=== PATIENT | female | born 2000 | race Caucasian/White ===

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

== ENCOUNTER → 2018-12-11 | Outpatient (CLI) | payer OTHER | LOC: COL.CARD 08:30 | DX: R00.2 Palpitations (principal); R55 Syncope and collapse ==

== ENCOUNTER 2019-06-05 22:25 | Emergency (ER) | payer OTHER ==
[~2019-06-05] VITALS: Ht 172.7 cm; Wt 81.8 kg
[2019-06-05] MEDS ORDERED: ASPIRIN 81M81 MG/TA2 PO (22:41)
[2019-06-05] MEDS ORDERED: PULMICORT90 MCG/Act IH (22:41)
[2019-06-05] MEDS ORDERED: B-121000 MCG PO (22:42)
[2019-06-05] MEDS ORDERED: PROTONIX40 MG/Pack PO (22:42)
[2019-06-05] MEDS ORDERED: PROAIR HFA0.09 MG/AC IH (22:43)
[2019-06-05] MEDS ORDERED: PRENATAL TABLET PO (22:44)
[2019-06-05] MEDS ORDERED: FERROUS SU325 MG/TAB PO (22:44)
[2019-06-05 23:02] LABS: BASO % 0.2 % (0.0-2.0); EOS # 0.1 (0.0-0.7); EOS % 0.7 % (0-4.0); GRAN # 5.5 (1.4-6.5); GRAN % 61.7 % (42.2-75.2); HEMOGLOBIN 11.6 g/dl (12.0-15.0); LYMPH # 2.5 (1.2-3.4); LYMPH % 28.3 % (20.0-51.0); MEAN CELL VOLUME 90 fl (80.0-95.0); MEAN CORPUSCULAR HEMOGLOBIN 31 pg (26.0-32.0); MEAN CORPUSCULAR HGB CONC 35 g/dl (33.0-37.0); MEAN PLATELET VOLUME 11.4 fl (7.4-10.4); MONO # 0.8 (0.1-0.6); MONO % 8.8 % (1.7-9.3); PLATELET COUNT 261 K/mm3 (130-400); RED BLOOD COUNT 3.69 M/mm3 (4.10-5.30); REDCELL DISTRIBUTION WIDTH-CV 12.6 % (11.5-14.5)
[2019-06-05 23:03] LABS: HEMATOCRIT 33.3 % (35.0-45.0)
[2019-06-05 23:12] LABS: ALBUMIN 3.9 gm/dL (3.5-5.0); BILIRUBIN,TOTAL 0.2 mg/dL (0.0-1.0); CALCIUM 9.5 mg/dL (8.4-10.2); CREATININE, serum 0.43 (0.52-1.25); POTASSIUM 3.8 mmol/L (3.4-5.0); TOTAL PROTEIN 6.8 gm/dL (6.4-8.2)
[2019-06-05 23:29] LABS: PROLACTIN 133.1 ng/mL (3.0-18.6)
[2019-06-06 00:53] LABS: COLLECTION METHOD CLEAN CATCH
[2019-06-06 00:58] LABS: PH 7 (5-8); SQUAMOUS EPITHELIAL 0-2 /hpf; URINE APPEARANCE Clear; URINE BACTERIA Rare /hpf; URINE BILIRUBIN Negative (NEGATIVE); URINE BLOOD Negative (NEGATIVE); URINE COLOR Straw; URINE GLUCOSE Negative (NEGATIVE); URINE KETONE Negative (NEGATIVE); URINE LEUKOCYTE ESTERASE 1+ (NEGATIVE); URINE NITRATE Negative (NEGATIVE); URINE PROTEIN(semi-quant) Negative (NEGATIVE); URINE RBC 0-2 /hpf; URINE UROBILINOGEN Negative (NEGATIVE)
[2019-06-06] MEDS ORDERED: MACROBID 1100 MG/CAP PO (01:34)
[2019-06-06 01:50] VITALS: BP 101/67; PULSE 97; TEMP 98
== END 2019-06-06 01:50 | disposition home or self-care (01) ==
LOC: COL.ER 22:25
PROVIDERS: Emergency Medicine
DX: O26.892 Other specified pregnancy related conditions, second trimester (principal); O99.512 Diseases of the respiratory system complicating pregnancy, second trimester; J45.909 Unspecified asthma, uncomplicated; Z3A.19 19 weeks gestation of pregnancy; Z79.82 Long term (current) use of aspirin; Z79.51 Long term (current) use of inhaled steroids
CPT/HCPCS: J7030

== ENCOUNTER 2019-06-27 22:06 | Outpatient (CLI) | payer OTHER ==
[~2019-06-27] VITALS: Ht 167.6 cm; Wt 84.1 kg
[~2019-06-27 22:06] MED LIST changes: +ASPIRIN 81M81 MG/TA2 PO; +B-121000 MCG PO; +FERROUS SU325 MG/TAB PO; +MACROBID 1100 MG/CAP PO; +PRENATAL TABLET PO; +PROAIR HFA0.09 MG/AC IH; +PROTONIX40 MG/Pack PO; +PULMICORT90 MCG/Act IH
[2019-06-27 22:12] VITALS: BP 126/73; PULSE 97; TEMP 98.4
--- NOTE | 2019-06-27 22:30 | NUR ---
G1 at 23.5 weeks gestation to LDR5 with c/o vaginal bleeding and decreased movement. 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 Patient states she has seen Dr. Ivory for care but is unsure if he is her primary OB provider or where she will deliver her baby. Patient states the above medical history but denies any further complications. Patient states that she was in the shower when she felt a "trickle" of blood run down her legs. Since this she has had some "pink" tinged spotting when she wipes but no active bleeding. Patient changed into gown, wedged left in bed. EFMs explained and applied. FHR 150 bpm and reactive. No CTX per toco or patient reports. VSS. SVE closed/thick/high. Plan of care reviewed with patient.
== END 2019-06-27 23:30 | disposition home or self-care (01) ==
LOC: LDRO 22:06
DX: O46.92 Antepartum hemorrhage, unspecified, second trimester (principal); Z3A.23 23 weeks gestation of pregnancy

== ENCOUNTER 2019-10-04 21:39 | Emergency (ER) | payer OTHER ==
[~2019-10-04] VITALS: Ht 167.6 cm; Wt 95.3 kg
[~2019-10-04 21:39] MED LIST changes: +UNISOM25 MG; +UNISOM25 MG PO; +ZANTAC 150MG T150 MG PO
[2019-10-04 21:46] VITALS: TEMP 97.8
[2019-10-04] MEDS ORDERED: MAGNESIUM200 MG PO (21:53)
[2019-10-04 22:25] LABS: COLLECTION METHOD CLEAN CATCH
[2019-10-04 22:28] LABS: BASO % 0.2 % (0.0-2.0); EOS # 0.1 (0.0-0.7); EOS % 0.8 % (0-4.0); GRAN # 7.4 (1.4-6.5); GRAN % 68.5 % (42.2-75.2); LYMPH # 2.4 (1.2-3.4); LYMPH % 22.3 % (20.0-51.0); MEAN CELL VOLUME 93 fl (80.0-100.0); MEAN CORPUSCULAR HEMOGLOBIN 32 pg (27.0-31.0); MEAN CORPUSCULAR HGB CONC 34 g/dl (33.0-37.0); MEAN PLATELET VOLUME 11.7 fl (7.4-10.4); MONO # 0.8 (0.1-0.6); MONO % 7.7 % (1.7-9.3); PLATELET COUNT 235 K/mm3 (130-400); RED BLOOD COUNT 3.49 M/mm3 (4.10-5.30); REDCELL DISTRIBUTION WIDTH-CV 13.2 % (11.5-14.5)
[2019-10-04 22:29] LABS: HEMATOCRIT 32.3 % (37.0-47.0)
[2019-10-04 22:40] LABS: ALBUMIN 3.8 gm/dL (3.5-5.0); BILIRUBIN,TOTAL 0.3 mg/dL (0.0-1.0); CALCIUM 9.6 mg/dL (8.4-10.2); CREATININE, serum 0.76 (0.52-1.25); MAGNESIUM 1.6 mg/dL (1.6-2.3); POTASSIUM 3.8 mmol/L (3.4-5.0)
[2019-10-04 23:03] LABS: MUCOUS Present /lpf; URINE BACTERIA Occasional /hpf; URINE RBC 0-2 /hpf
[2019-10-04 23:22] LABS: AMORPHOUS CRYSTAL Present /uL; PH 8 (5-8); URINE APPEARANCE Cloudy; URINE BILIRUBIN Negative (NEGATIVE); URINE BLOOD Negative (NEGATIVE); URINE COLOR Yellow; URINE GLUCOSE Negative (NEGATIVE); URINE KETONE Negative (NEGATIVE); URINE LEUKOCYTE ESTERASE 3+ (NEGATIVE); URINE NITRATE Negative (NEGATIVE); URINE PROTEIN(semi-quant) Negative (NEGATIVE); URINE UROBILINOGEN Negative (NEGATIVE)
[2019-10-05 00:06] VITALS: BP 121/76; PULSE 85
== END 2019-10-05 00:07 | disposition home or self-care (01) ==
LOC: COL.ER 21:39
PROVIDERS: Emergency Medicine
DX: O26.893 Other specified pregnancy related conditions, third trimester (principal); O99.513 Diseases of the respiratory system complicating pregnancy, third trimester; R20.0 Anesthesia of skin; J45.909 Unspecified asthma, uncomplicated; Z3A.38 38 weeks gestation of pregnancy; Z88.6 Allergy status to analgesic agent; Z79.82 Long term (current) use of aspirin; Z79.51 Long term (current) use of inhaled steroids

== ENCOUNTER → 2020-05-09 | Outpatient (CLI) | payer OTHER ==
[~2020-05-09] MED LIST changes: +MAGNESIUM200 MG PO
== END ==
LOC: COL.RAD 08:42
DX: Z01.818 Encounter for other preprocedural examination (principal); N97.1 Female infertility of tubal origin
CPT/HCPCS: Q9967

== ENCOUNTER → 2020-07-26 | Outpatient (CLI) | payer OTHER | LOC: COL.RAD 12:08 | DX: Z31.41 Encounter for fertility testing (principal) ==